=== PATIENT | female | born 1995 | race Caucasian/White ===

== ENCOUNTER 2017-05-08 11:14 | Emergency (ER) | payer BC ==
[2017-05-08 11:39] VITALS: BP 121/77
--- NOTE | 2017-05-08 12:02 | UC ---
Throat Pain/Nasal [place] HPI - HPI Summary HPI Summary: patient has had ear ache for a few days in the left ear, as well as other URI symtpoms. today woke up with fever. - History of Current Complaint Chief Complaint: UCGU Stated Complaint: ? YEAST INFECTION Time Seen by Provider: 05/08/17 11:31 Hx Last Menstrual Period: 2 weeks - Allergies/Home Medications Allergies/Adverse Reactions: Allergies Allergy/AdvReac Type Severity Reaction Status Date / Time Gluten Meal Allergy GI Upset Verified 05/08/17 11:39 Home Medications: Home Medications Calcium Carbonate CHEW TAB* [Tums*] 500 mg PO ONCE PRN 05/08/17 [History Confirmed 05/08/17] Ibuprofen TAB* [Motrin TAB* 600 MG] 600 mg PO ONCE PRN 05/08/17 [History Confirmed 05/08/17] PMH/Surg Hx/FS Hx/Imm Hx - Surgical History Surgical History: Yes Surgery Procedure, Year, and Place: bladder reflux/ kidney; right hip with 2 anchors December 2016 - Family History Known Family History: Positive: Other - + celiac disease Negative: Cardiac Disease, Hypertension, Diabetes - Social History Alcohol Use: Weekly Alcohol Amount: 10+ Substance Use Type: None Smoking Status (MU): Never Smoked Tobacco - Immunization History Most Recent Influenza Vaccination: Not the 2015/2016 Season Most Recent Tetanus Shot: 8 yrs Review of Systems Constitutional: Fever, Fatigue Skin: Negative Eyes: Negative ENT: Sore Throat, Ear Ache, Nasal Discharge, Sinus Congestion, Sinus Pain/ Tenderness Respiratory: Negative Cardiovascular: Negative Gastrointestinal: Negative Genitourinary: Negative Motor: Negative Neurovascular: Negative Musculoskeletal: Negative Neurological: Negative Psychological: Negative All Other Systems Reviewed And Are Negative: Yes Physical Exam Triage Information Reviewed: Yes Appearance: Well-Nourished, Ill-Appearing, Pain Distress Vital Signs: Initial Vital Signs Temp 99.2 F 05/08/17 11:28 Pulse 96 05/08/17 11:28 Resp 18 05/08/17 11:28 BP 121/77 05/08/17 11:28 Vital Signs Reviewed: Yes Eyes: Positive: Conjunctiva Inflamed ENT: Positive: Pharyngeal erythema, TM dull, TM red, Tonsillar swelling Dental Exam: Normal Neck exam: Normal Respiratory Exam: Normal Respiratory: Positive: Chest non-tender, Lungs clear, Normal breath sounds Cardiovascular Exam: Normal Cardiovascular: Positive: RRR, No Murmur, Pulses Normal Abdominal Exam: Normal Abdomen Description: Positive: Nontender, No Organomegaly, Soft Bowel Sounds: Positive: Present Musculoskeletal Exam: Normal Musculoskeletal: Positive: Strength Intact, ROM Intact, No Edema Neurological Exam: Normal Psychological Exam: Normal Skin Exam: Normal Throat Pain/Nasal Course/Dx - Course Course Of Treatment: hx obtained, exam performed ,meds reviewed, treated for otitis media - Differential Dx/Diagnosis Differential Diagnosis/HQI/PQRI: Otitis Media, Pharyngitis, Sinusitis Provider Diagnoses: left otitis media Discharge - Discharge Plan Condition: Stable Disposition: HOME Prescriptions: Amoxicillin PO (*) [Amoxicillin 400 MG/5 ML SUSP*] 400 mg PO BID #100 bottle Patient Education Materials: Otitis Media in Children (ED) Forms: *School Release Additional Instructions: 1. take the medication as prescribed. 2. Increase fluid intake and get plenty of rest. 3. Continue with ibuprofen for fever and pain
--- NOTE | 2017-05-08 12:18 | UC ---
Complaint Female HPI - HPI Summary HPI Summary: patient has had some abdominal bloating and consitpation for the past few months. was seen by her CRM TECHNICAL LEAD 3 weeks ago for yearly exam, has had increased white drainage from her vagina, pelvic pressure. has had unprotected sex about 1 month ago. - History Of Current Complaint Chief Complaint: UCGU Stated Complaint: ? YEAST INFECTION Time Seen by Provider: 05/08/17 11:31 Hx Obtained From: Patient Hx Last Menstrual Period: 2 weeks ?: No Onset/Duration: Sudden Onset, Lasting Days Timing: Lasting Days Severity Initially: Mild Severity Currently: Mild - Allergies/Home Medications Allergies/Adverse Reactions: Allergies Allergy/AdvReac Type Severity Reaction Status Date / Time Gluten Meal Allergy GI Upset Verified 05/08/17 11:39 Home Medications: Home Medications Calcium Carbonate CHEW TAB* [Tums*] 500 mg PO ONCE PRN 05/08/17 [History Confirmed 05/08/17] Ibuprofen TAB* [Motrin TAB* 600 MG] 600 mg PO ONCE PRN 05/08/17 [History Confirmed 05/08/17] PMH/Surg Hx/FS Hx/Imm Hx Previously Healthy: Yes - Surgical History Surgical History: Yes Surgery Procedure, Year, and Place: bladder reflux/ kidney; right hip with 2 anchors December 2016 - Family History Known Family History: Positive: Other - + celiac disease Negative: Cardiac Disease, Hypertension, Diabetes - Social History Alcohol Use: Weekly Alcohol Amount: 10+ Substance Use Type: None Smoking Status (MU): Never Smoked Tobacco - Immunization History Most Recent Influenza Vaccination: Not the 2015/2016 Season Most Recent Tetanus Shot: 8 yrs Review of Systems Constitutional: Negative Skin: Negative Eyes: Negative ENT: Negative Respiratory: Negative Cardiovascular: Negative Gastrointestinal: Other - constipation Genitourinary: Other - peliv pressure Motor: Negative Neurovascular: Negative Musculoskeletal: Negative Neurological: Negative Psychological: Negative Is Patient Immunocompromised?: No All Other Systems Reviewed And Are Negative: Yes Physical Exam Triage Information Reviewed: Yes Appearance: Well-Appearing, Well-Nourished, Pain Distress Vital Signs: Initial Vital Signs Temp 99.2 F 05/08/17 11:28 Pulse 96 05/08/17 11:28 Resp 18 05/08/17 11:28 BP 121/77 05/08/17 11:28 Vital Signs Reviewed: Yes Eye Exam: Normal ENT Exam: Normal Dental Exam: Normal Neck exam: Normal Respiratory Exam: Normal Respiratory: Positive: Chest non-tender, Lungs clear, Normal breath sounds Cardiovascular Exam: Normal Cardiovascular: Positive: RRR, No Murmur, Pulses Normal Abdominal Exam: Normal Abdomen Description: Positive: No Organomegaly, Soft, CVA Tenderness (R) - neg, CVA Tenderness (L) - neg, Other: - Pelvic exam: no external lesions or irritation, vaginal wall pink, neg cervical motion tenderness, thick white vaginal drainage noted, cultures obtained, manual exam nontender. Bowel Sounds: Positive: Present Musculoskeletal Exam: Normal Musculoskeletal: Positive: Strength Intact, ROM Intact, No Edema Neurological Exam: Normal Psychological Exam: Normal Skin Exam: Normal Complaint Female Dx - Course Course Of Treatment: hx obtained, exam performed ,meds reviewed, pelvic exam performed, treated for vaginitis, waiting for culture results. - Differential Dx/Diagnosis Differential Diagnosis/HQI/PQRI: Sexually Transmitted Disease, Ureteral Stone, Urinary Tract Infection, Other - constipation Provider Diagnoses: constipation. vaginitis Discharge - Discharge Plan Condition: Stable Disposition: HOME Prescriptions: Amoxicillin PO (*) [Amoxicillin 400 MG/5 ML SUSP*] 400 mg PO BID #100 bottle Forms: *School Release Referrals: Non Staff,Doctor [Primary Care Provider] - Additional Instructions: 1. take the medication as prescribed. 2. Increase fluid intake and add the metamucil to galss of water daily to help with regulare bowel movements. 3. Follow up with the CRM TECHNICAL LEAD if pelvic pressure continues, your cultures should be back in 48 hours and we will call you with any positive results.
== END 2017-05-08 12:47 | disposition home or self-care (01) ==
LOC: UCCORT 11:14
DX: H66.92 Otitis media, unspecified, left ear (principal); Z32.02 Encounter for pregnancy test, result negative; Z91.018 Allergy to other foods
CPT/HCPCS: 81003; 84702; 87480; 87491; 87510; 87591; 87661; 99212; G0463

== ENCOUNTER 2017-09-20 11:53 | Emergency (ER) | payer BC ==
[2017-09-20 12:50] VITALS: BP 129/87
--- NOTE | 2017-09-20 12:55 | UC ---
Complaint Female HPI - HPI Summary HPI Summary: 21 y/o female presents to the urgent care c/o frequency and burning on urination since 09/15/2017. Pain is 8/10 with urination. Symptoms worsen since Tuesday with mild cramping pelvic pain, and a mild vaginal discharge. Pt has not taking anything to alleviate symptoms. LMP 09/07/2017 with regular menstrual cycles. She has a UTI on 05/2017 and has PMHX of bladder reflux surgery as a child. Pt denies hematuria, fever. Hx of STD's, lower back pain, Hx of kidney stones, N/V/D - History Of Current Complaint Chief Complaint: UCGU Stated Complaint: URINARY Time Seen by Provider: 09/20/17 12:51 Hx Obtained From: Patient Hx Last Menstrual Period: 09/07/17 Onset/Duration: Gradual Onset, Lasting Days - 6 days, Still Present, Worse Since - 3 days ago Timing: Intermittent Severity Initially: Mild Severity Currently: Moderate Pain Intensity: 8 Pain Scale Used: 0-10 Numeric Character: Burning Aggravating Factor(s): Urination Alleviating Factor(s): Nothing Associated Signs And Symptoms: Positive: Vaginal Bleeding/Discharge - mild. Negative: Fever, Back Pain, Nausea, Vomiting(# Of Episodes =), Genital Swelling , Genital Blisters - Risk Factors Ectopic Risk Factor: Negative - Allergies/Home Medications Allergies/Adverse Reactions: Allergies Allergy/AdvReac Type Severity Reaction Status Date / Time Gluten Meal Allergy GI Upset Verified 09/20/17 12:45 PMH/Surg Hx/FS Hx/Imm Hx Previously Healthy: Yes Respiratory History: Asthma - exercise asthma induce Other GI/ History: bladder reflux surgery as a child - Surgical History Surgical History: Yes Surgery Procedure, Year, and Place: bladder reflux/ kidney; right hip with 2 anchors December 2016 - Family History Known Family History: Positive: Other - + celiac disease Negative: Cardiac Disease, Hypertension, Diabetes - Social History Occupation: Employed Full-time Lives: With Family Alcohol Use: Weekly Alcohol Amount: 10+ Substance Use Type: None Smoking Status (MU): Never Smoked Tobacco - Immunization History Most Recent Influenza Vaccination: Not the 2016/2016 Season Most Recent Tetanus Shot: 8 yrs Review of Systems Constitutional: Negative Skin: Negative Eyes: Negative ENT: Negative Respiratory: Negative Cardiovascular: Negative Gastrointestinal: Negative Genitourinary: Dysuria, Frequency, Urgency, Vaginal/Penile Discharge - mild Motor: Negative Neurovascular: Negative Musculoskeletal: Negative Neurological: Negative Psychological: Negative Is Patient Immunocompromised?: No All Other Systems Reviewed And Are Negative: Yes Physical Exam Triage Information Reviewed: Yes Vital Signs: Initial Vital Signs Temp 98.6 F 09/20/17 12:46 Pulse 88 09/20/17 12:46 Resp 16 09/20/17 12:46 BP 129/87 09/20/17 12:46 - Additional Comments Vital signs: reviewed General: well developed, well nourished female sitting in the examining table w/ o any apparent acute distress. Head: Normocephalic, no lesions. Eyes: PERRLA, EOM's full, conjunctiva clear, fundi grossly normal. Ears: EAC's clear, TM's normal. Nose: Mucosa normal, no obstruction. Throat: Clear, no exudates, no lesions. Neck: Supple, no masses, no thyromegaly, no bruits. Chest: Lungs clear, no rales, no rhonchi, no wheezes. Heart: RR, no murmurs, no rubs, no gallops. Abdomen: Soft, no tenderness, no masses, BS normal. : Normal, no lesions, no discharge, no hernias noted. Pelvic: I was assisted by Nurse Kallie. External genitalia within normal limits. There is no lesions there is no masses noted. Speculum exam: The vaginal gómez are within normal limits w/ normal white cottage cheese vaginal discharge, no lesions or rashes. The cervix is closed with erythematous strawberry like cervix around os, no masses. There is no CMT's, and no adnexal masses. Sample sent Lab for affirm panel and thrichomonas Rectal: No lesions, no hemorrhoids, Back: Normal curvature, no tenderness. Extremities: FROM, no deformities, no edema, no erythema. Neuro: Physiological, no localizing findings. Skin: Normal, no rashes, no lesions noted. Complaint Female Dx - Course Course Of Treatment: 21 y/o female presents to the urgent care c/o frequency and burning on urination since 09/15/2017. Pain is 8/10 with urination. Symptoms worsen since Tuesday with mild cramping pelvic pain, and a mild vaginal discharge. Pt has not taking anything to alleviate symptoms. LMP 2017 with regular menstrual cycles. She has a UTI on 05/2017 and has PMHX of bladder reflux surgery as a child. Pt denies hematuria, fever. Hx of STD's, lower back pain, Hx of kidney stones, N/V/D. Hx obtained. UA ordere, Negative. Pt with mild vaginal D/C. Speculum exam: The vaginal gómez are within normal limits w/ white cottage cheese vaginal discharge, no lesions or rashes. The cervix is closed with strawberry like surrounding erythema around os, no masses. There is no CMT's, and no adnexal masses. Sample sent to trichomonas and affirm panel. Pt Rx Fluconazole for Candidiasis. Strongly advised to f/u with BRANCH ADMINISTRATOR for PAP since she had an abnormal PAP 6 months ago. Advised she will be notified if any abnormal result from lab. Pt understood and agreed with plan of care. - Differential Dx/Diagnosis Differential Diagnosis/HQI/PQRI: Cervicitis, Pelvic Inflammatory Disease, Sexually Transmitted Disease, Ureteral Stone, Urinary Tract Infection Provider Diagnoses: 1- Vulvovaginal Candidiasis. 2-Dysuria Discharge - Discharge Plan Condition: Stable Disposition: HOME Prescriptions: Fluconazole 150 MG (NF) [Diflucan 150 mg (NF)] 150 mg PO ONCE #1 tab Phenazopyridine TAB* [Pyridium 100 mg TAB*] 100 mg PO TID #6 tab Patient Education Materials: Yeast Infection (ED), Dysuria (ED) Referrals: Anant Brown MD [Primary Care Provider] - 3 Days Additional Instructions: 1-Please f/u with BRANCH ADMINISTRATOR for a PAP as soon as possible for further management on your abnormal PAP. 2- Please take medications as directed. 3- TAke the Pyridium PO as directed to alleviate Dysuria. Increase fluid intake 4- Specimen were sent to lab, if anything abnormal you will receive a call from us for further treatment. 5-If not improvement of symptoms please return to the urgent care or f/u with your BRANCH ADMINISTRATOR for further treatment
== END 2017-09-20 13:36 | disposition home or self-care (01) ==
LOC: UCCORT 11:53
DX: B37.3 Candidiasis of vulva and vagina (principal); R30.0 Dysuria; Z87.442 Personal history of urinary calculi; Z72.89 Other problems related to lifestyle
CPT/HCPCS: 81003; 87480; 87510; 87660; 87661; 99212; G0463

== ENCOUNTER 2018-01-04 07:35 | Emergency (ER) | payer BC ==
[2018-01-04 07:44] VITALS: BP 128/85
--- NOTE | 2018-01-04 07:59 | UC ---
Eye Complaint HPI - HPI Summary HPI Summary: Right eye redness and drainage this morning. THere is irritation without pain. Non contact lens wearer. NO trauma. No URI symptoms. - History of Current Complaint Chief Complaint: UCEye Stated Complaint: eye complaint Time Seen by Provider: 01/04/18 07:51 Hx Obtained From: Patient Hx Last Menstrual Period: 12/29/17 ?: No Onset/Duration: Gradual Onset, Lasting Hours Timing: Hours Severity Initially: Moderate Severity Currently: Moderate Pain Intensity: 0 Location of Injury: Conjunctiva Character: Dull Aggravating Factor(s): Nothing Alleviating Factor(s): Nothing Associated Signs And Symptoms: Positive: Drainage (Purulent). Negative: Vision Impairment Bilateral, Vision Impairment Right, Vision Impairment Left, Fever, Swelling - Allergies/Home Medications Allergies/Adverse Reactions: Allergies Allergy/AdvReac Type Severity Reaction Status Date / Time gluten Allergy GI Upset Verified 01/04/18 07:42 PMH/Surg Hx/FS Hx/Imm Hx Previously Healthy: Yes - Surgical History Surgical History: Yes Surgery Procedure, Year, and Place: bladder reflux/ kidney; right hip with 2 anchors December 2016 - Family History Known Family History: Positive: Other - + celiac disease Negative: Cardiac Disease, Hypertension, Diabetes - Social History Occupation: Student Alcohol Use: Weekly Alcohol Amount: 10+ Substance Use Type: None Smoking Status (MU): Never Smoked Tobacco - Immunization History Most Recent Influenza Vaccination: Not the 2015/2016 Season Most Recent Tetanus Shot: 8 yrs Review of Systems Eyes: Drainage, Eye Redness All Other Systems Reviewed And Are Negative: Yes Physical Exam Triage Information Reviewed: Yes Appearance: Well-Appearing, No Pain Distress, Well-Nourished Vital Signs: Initial Vital Signs Temp 98.1 F 01/04/18 07:40 Pulse 88 01/04/18 07:40 Resp 16 01/04/18 07:40 BP 128/85 01/04/18 07:40 Pulse Ox 98 01/04/18 07:40 Vital Signs Reviewed: Yes Eyes: Positive: Conjunctiva Inflamed, Discharge ENT: Positive: Pharynx normal, TMs normal, Uvula midline. Negative: Pharyngeal erythema, Nasal congestion, Nasal drainage, TM bulging, TM dull, TM red, Tonsillar swelling, Tonsillar exudate, Trismus, Muffled voice, Sinus tenderness Neck: Positive: Supple, Nontender, No Lymphadenopathy Respiratory: Positive: Lungs clear, Normal breath sounds, No respiratory distress, No accessory muscle use. Negative: Respiratory distress, Decreased breath sounds, Accessory muscle use, Crackles, Rhonchi, Stridor, Wheezing Cardiovascular: Positive: No Murmur, Pulses Normal Abdomen Description: Negative: Distended Musculoskeletal: Positive: Strength Intact, ROM Intact, No Edema Neurological: Positive: Alert, Muscle Tone Normal. Negative: Fatigued Psychological: Positive: Age Appropriate Behavior Skin: Negative: rashes Eye Complaint Course/Dx - Differential Dx/Diagnosis Provider Diagnoses: bacterial conjunctivitis. Discharge - Sign-Out/Discharge Documenting (check all that apply): Discharge/Admit/Transfer - Discharge Plan Condition: Good Disposition: HOME Prescriptions: Ciprofloxacin 0.3% OPTH.ROXANNA* [Cipro 0.3% Opth*] 2 drop BOTH EYES Q4H #1 btl Patient Education Materials: Conjunctivitis (ED) Referrals: Anant Brown MD [Primary Care Provider] - - Billing Disposition and Condition Condition: GOOD Disposition: HOME
== END 2018-01-04 08:00 | disposition home or self-care (01) ==
LOC: UCCORT 07:35
DX: H10.89 Other conjunctivitis (principal)
CPT/HCPCS: 99212; G0463